=== PATIENT | male | born 1945 | race Caucasian/White ===

== ENCOUNTER 2024-07-05 15:36 | Emergency (ER) | payer OTHER, SELFPAY ==
[2024-07-05 15:50] VITALS: BP 161/84
[2024-07-05 17:46] VITALS: BP 160/97
[2024-07-05 17:47] VITALS: BMI 31.9
--- NOTE | 2024-07-05 18:53 | ED.GENMED ---
History of Present Illness
General
Chief Complaint: Fall
Source: patient
Exam Limitations: none
Time Seen by Provider: 07/05/24 17:37
Nursing documentation reviewed up to this point in time: agreed with
History of Present Illness
History of Present Illness:
pt is 79 y/o M with h/o THN, HLD
prostate ca
from [place]
was visiting friend's house and fell down 3 steps onto L knee
got himself up but cannot really walk on that leg
he has inabiility to straight leg raise
he can flex the knee
no pain with palpation or movement
no hip pain
no swelling
denies head strike, no thinners
Past History
Past History
ED Past Medical History: Cancer, HTN and Hypercholesterolemia
Social History
Tobacco: Non-smoker
Review of Systems
Review of Systems
Allergies reviewed?: Yes
All Other Systems: Not applicable
Phy Exam
Physical Exam
Physical Exam:
GENERAL: Alert , in no apparent distress, comfortable at rest
HEAD: NCAT
CV: 2+ DP PULSES B/L
NEUROLOGICAL: Alert and oriented, no focal neuro deficits, , 5/5 strength, sensation intact, ambulation slight limp right leg
SKIN: Warm and dry, no bruising or skin chnages
MUSCULOSKELETAL: L knee normal inspection
no swelling
pt has a palpable defect in the superior to the patella where quadriceps tendon inserts; can actively flex the knee but not straight leg raise
hip normal
normal lower extremity
normal pulse
PSYCH: Normal and appropriate interaction.
Course
Orders/Labs/Results
Orders:
Orders
07/05/24 15:53
CR Femur - Left Min 2 Vw Urgent
Reason For Exam: fall, injury
CR Knee - Left 4 Or More View* Urgent
Comment:
Reason For Exam: fall, injury
07/05/24 19:12
Acetaminophen [Tylenol] 650 mg PO NOW STA
Vital Signs
Initial and Last Documented VS:
Initial Vital Signs
Temp Pulse Resp BP Pulse Ox
36.9 C 86 18 161/84 98
07/05/24 15:50 07/05/24 15:50 07/05/24 15:50 07/05/24 15:50 07/05/24 15:50
Last Documented Vital Signs
Temp Pulse Resp BP Pulse Ox
36.9 C 89 16 160/97 98
07/05/24 15:50 07/05/24 17:46 07/05/24 17:46 07/05/24 17:46 07/05/24 17:46
MDM/Problems Addressed
Differential Diagnosis Includes:
quad tendon rupture, fracture, sprain
MDM/Problems Addressed:
79 y/o M with fall onto knee today down 3 stpes
no head injury
no neck pain
pain in the knee with weight bearing, unabe to straight leg raise
defect palpiated above the patella
c/o quad tendon rupture
xray indep reviweed, shows quad tendon rupture
OA
knee immobilization, watlker
tylenol
RICE
ortho f/u
pt lives in [place]
given copy of disc.
*Critical Care Note
Total Time (30-74mins, 75-104mins- exclusive of procedures): Not Applicable
ED Attending Note
-
Portions of this chart may have been created with voice recognition software.� Occasional wrong word or��sound alike� substitutions may have occurred due to the inherent limitations of voice recognition software.
Discharge Plan
Departure
Patient Disposition: Home (Routine Discharge)
Date of Disposition: 07/05/24
Time of Disposition: 19:11
Patient with high blood pressure during this ER visit?: Yes
Condition: Fair
Covid-19: Not Applicable
Discharge Problem:
Quadriceps tendon rupture
Instructions: Quadriceps and Patellar Tendon Injuries
Referrals:
Ar[facility] [Other]
Activity Restrictions/Additional Instructions:
You appear to have ruptured your quadriceps tendon. Please keep the knee immobilizer on while you are up and about and avoid weightbearing is much as possible on that left foot. You can use a walker to help with that. Ice off-and-on. You can
remove the knee immobilizer while you are sleeping or you can keep it on to keep your knee immobilized. You need to follow-up with your orthopedist.. Please call for an appointment. Until then take Tylenol every 6 hours for pain. Return for any
concerns
Interventions
Interventions:
*Risk Screen - Suicide Last Done: 07/05/24 15:52
*General Assessment Last Done: 07/05/24 15:52
*Neglect/Abuse Screening Last Done: 07/05/24 15:52
*ED- Fall Risk Assessment Last Done: 07/05/24 19:45
*ED COVID-19 Vaccine History Last Done: 07/05/24 19:45
*Nursing Disposition Last Done: 07/05/24 19:45
ED-Musculoskeletal Assessment Last Done: 07/05/24 17:45
ED- Neurological Assessment Last Done: 07/05/24 17:45
ED-Skin Assessment Last Done: 07/05/24 17:45
Discharge Date and Time
Discharge Date/Time: 07/05/24 19:45
Print Language: ANDORRAN
[2024-07-05] MEDS: TYLENOL 650 MG PO (19:23)
== END 2024-07-05 19:45 | disposition home or self-care (01) ==
LOC: EMR 15:36
PROVIDERS: EMERGENCY PHYSICIAN Emergency Medicine
DX: S76.112A Strain of left quadriceps muscle, fascia and tendon, initial encounter (principal); W10.9XXA Fall (on) (from) unspecified stairs and steps, initial encounter; I10 Essential (primary) hypertension; E78.00 Pure hypercholesterolemia, unspecified
CPT/HCPCS: 99283; 29505; 73552; 73564